=== PATIENT | male | born 1950 | race Caucasian/White ===

== ENCOUNTER → 2022-08-22 14:14 | Outpatient (CLI) | payer MEDICARE, OTHER, SELFPAY ==
--- NOTE | 2022-08-22 14:14 | CT_ITS ---
FINAL REPORT TECHNIQUE: Thin section axial images were obtained from the lung apices through the upper abdomen without contrast. This study was performed with techniques to keep radiation doses as low as reasonably achievable (ALARA). Individualized dose reduction techniques using automated exposure control or adjustment of mA and/or kV according to the patient's size were employed. CLINICAL HISTORY: Lung Nodule FINDINGS: There is no mediastinal, hilar, or axillary lymphadenopathy. There is no pleural or pericardial effusion. There is a 5 mm left upper lobe nodule on image 24. There is a 4 mm nodule along the right major fissure on image 37 that is likely an intra fissural lymph node. Limited, unenhanced evaluation of the upper abdomen is without acute abnormality. There are gallstones in the gallbladder. There may be a left renal mass incompletely imaged. There is a nonobstructing left renal stone. There is no acute osseous abnormality. IMPRESSION: 1. 5 mm or less bilateral pulmonary nodules. Recommend follow-up based on risk stratification and Fleischner criteria. 2. Possible left renal mass. Recommend either ultrasound or contrast enhanced CT. Reviewed, Interpreted and Dictated by Anisha Lucas MD Transcribed by Stormy Crocker Authenticated and [facility]
== END ==
PROVIDERS: PCP Family Medicine; Visit Provider Family Medicine
DX: R91.1 Solitary pulmonary nodule (principal)
CPT/HCPCS: 71250

== ENCOUNTER → 2022-09-07 09:43 | Outpatient (CLI) | payer MEDICARE, OTHER, SELFPAY ==
--- NOTE | 2022-09-07 09:43 | US_ITS ---
FINAL REPORT TECHNIQUE: Ultrasound images of the abdomen were obtained. CLINICAL HISTORY: ? left Renal mass COMPARISON: CT chest 08/22/2022 FINDINGS: ABDOMINAL ULTRASOUND COMPLETE: The liver is normal in size and echogenicity without focal abnormality. Gallstones are present within the gallbladder. The common duct measures 3 mm. The right kidney measures 11.2 cm in length and is normal in echogenicity without hydronephrosis. The left kidney measures 10.8 cm in length. There is a 1.3 cm mass in lower pole of the left kidney which does not appear to be a simple cyst. The spleen is unremarkable. The pancreas is partially obscured by overlying bowel gas. The visualized portions of the aorta and the IVC are normal. The vena cava is unremarkable. IMPRESSION: Gallstones in the gallbladder. 1.2 cm mass lower pole left kidney does not appear to be a simple cyst. Recommend renal mass protocol CT. Reviewed, Interpreted and Dictated by London Hogue III, MD Transcribed by Usha Ornelas Authenticated and . [facility]
== END ==
PROVIDERS: PCP Family Medicine; Visit Provider Family Medicine
DX: R10.9 Unspecified abdominal pain (principal)
CPT/HCPCS: 76700

== ENCOUNTER → 2022-09-13 11:55 | Outpatient (CLI) | payer MEDICARE, OTHER, SELFPAY ==
[2022-09-13 13:57] LABS: Blood Urea Nitrogen 24 mg/dl (9-20); Estimated Glomerular Filt Rate 66 ml/min (>60); GFR (African American) 80 ML/MIN (>60)
== END ==
PROVIDERS: PCP Family Medicine; Visit Provider Family Medicine
DX: N28.89 Other specified disorders of kidney and ureter (principal)
CPT/HCPCS: 36415; 82565; 84520

== ENCOUNTER → 2022-09-21 08:27 | Outpatient (CLI) | payer MEDICARE, OTHER, SELFPAY ==
--- NOTE | 2022-09-21 08:30 | CT_ITS ---
FINAL REPORT TECHNIQUE: Axial CT images were obtained from the lung bases to the mid abdomen before and following IV contrast administration. Images were obtained of the pelvis after IV contrast administration. Coronal and sagittal reformatted images were generated from the axial data set and provided for interpretation.This study was performed with techniques to keep radiation doses as low as reasonably achievable, (ALARA). Individualized dose reduction techniques using automated exposure control or adjustment of mA and/or kV according to the patient's size were employed. CLINICAL HISTORY: Left Renal Mass COMPARISON: 09/07/2022 abdominal ultrasound FINDINGS: LOWER CHEST: The heart is normal in size.The lung bases are clear. ABDOMEN/PELVIS: Liver, gallbladder, and bile ducts: There is diffuse fatty infiltration of the liver without focal hepatic lesion. Gallbladder is present and contains gallstones. There is no definite biliary duct dilatation. Adrenal glands: The adrenal glands are morphologically unremarkable without suspicious lesion. Kidneys, ureter and urinary bladder: No suspicious renal lesion, cystic or solid. The abnormality identified on ultrasound is not seen on this CT. There is a tiny nonobstructing left renal stone. No hydronephrosis. There is bilateral nonspecific perinephric stranding. Urinary bladder is unremarkable. Spleen: The spleen is normal size. Pancreas: The pancreas is grossly unremarkable. GI systems and mesentery: No acute abnormality. Appendix is not included on this exam. No significant mesenteric inflammation. Other: No lymphadenopathy. No ascites. Bones: No acute osseous abnormalities. IMPRESSION: No renal mass. Nonspecific bilateral perinephric stranding. Tiny nonobstructing left renal stone. Reviewed, Interpreted and Dictated by Anisha Lucas MD Transcribed by Usha Ornelas Authenticated and [facility]
== END ==
PROVIDERS: PCP Family Medicine; Visit Provider Family Medicine
DX: N28.89 Other specified disorders of kidney and ureter (principal)
CPT/HCPCS: 74170; Q9967

== ENCOUNTER → 2022-11-01 10:22 | Outpatient (CLI) | payer MEDICARE, OTHER, SELFPAY ==
[2022-11-01 15:34] LABS: Alanine Aminotransferase 22 U/L (12-78); Albumin Level 4.7 g/dl (3.5-5.0); Albumin/Globulin Ratio 1.9 (1.1-1.8); Alkaline Phosphatase 70 U/L (38-126); Anion Gap 12.5 mEq/L (5-15); Aspartate Amino Transferase 31 U/L (17-59); Bilirubin,Total 0.6 mg/dl (0.2-1.3); Calcium 9.7 mg/dl (8.4-10.2); Carbon Dioxide 26 mmol/L (22.0-30.0); Chloride 103 mmol/L (98-107); Chol/HDL Ratio 6.7 (1-3.5); Cholesterol 233 mg/dl (140-200); Globulin 2.5 g/dL (1.3-3.2); Glucose 105 mg/dl (74-100); HDL Cholesterol 35 mg/dl (40-60); Potassium 4.5 mmoL/L (3.5-5.1); Sodium 137 mmol/L (136-145); Total Protein,Serum 7.2 g/dl (6.3-8.2); Triglycerides 129 mg/dl (30-150); VLDL Cholesterol 26 mg/dL (0-40)
[2022-11-01 15:36] LABS: Basophils # 0.1 K/mm3 (0-0.2); Basophils % 1.1 % (0.1-2.0); Eosinophils # 0.2 K/mm3 (0.0-0.4); Eosinophils % 1.8 % (0.1-12.0); Hematocrit 44.1 % (42.0-52.0); Hemoglobin 13.9 g/dL (14.1-18.0); Lymphocytes # 2.6 K/mm3 (0.7-4.5); Lymphocytes % 29.7 % (10-50); Mean Corpuscular HGB Conc 31.5 g/dL (31.8-35.4); Mean Corpuscular Hemoglobin 32.8 pg (27.0-31.2); Mean Corpuscular Volume 104.1 fl (80-94); Mean Platelet Volume 9.1 fl (7.4-10.4); Monocytes # 0.7 K/mm3 (0.1-1.0); Monocytes % 7.8 % (1.7-9.3); Neutrophils # 5.2 K/mm3 (1.8-7.8); Neutrophils % 59.6 % (37.0-80.0); Platelet Count 303 K/mm3 (142-424); Red Blood Count 4.23 M/mm3 (4.60-6.20); Red Cell Distribution Width 13.1 % (11.5-17.5); White Blood Count 8.8 K/mm3 (4.8-10.8)
[2022-11-01 15:38] LABS: Blood Urea Nitrogen 23 mg/dl (9-20); Estimated Glomerular Filt Rate 66 ml/min (>60); GFR (African American) 80 ML/MIN (>60)
[2022-11-01 15:46] LABS: Direct LDL Cholesterol 145.27 mg/dL (100-129)
[2022-11-01 16:05] LABS: Prostate Specific Ag Screen 1.1 ng/ml (0.0-4.0)
== END ==
PROVIDERS: PCP Family Medicine; Visit Provider Family Medicine
DX: E11.9 Type 2 diabetes mellitus without complications (principal); Z12.5 Encounter for screening for malignant neoplasm of prostate
CPT/HCPCS: 80053; 80061; 85025; G0103

== ENCOUNTER 2024-03-04 09:17 | Outpatient (CLI) | payer MEDICARE, SELFPAY ==
[2024-03-04 20:12] LABS: Alanine Aminotransferase 35 U/L (12-78); Albumin Level 3.9 g/dl (3.5-5.0); Albumin/Globulin Ratio 1.4 (1.1-1.8); Alkaline Phosphatase 63 U/L (38-126); Anion Gap 12.5 mEq/L (5-15); Aspartate Amino Transferase 31 U/L (17-59); Bilirubin,Total 0.6 mg/dl (0.2-1.3); Blood Urea Nitrogen 27 mg/dl (9-20); Calcium 9.3 mg/dl (8.4-10.2); Carbon Dioxide 24 mmol/L (22.0-30.0); Chloride 108 mmol/L (98-107); Estimated Glomerular Filt Rate 66 ml/min (>60); GFR (African American) 80 ML/MIN (>60); Globulin 2.8 g/dL (1.3-3.2); Glucose 171 mg/dl (74-100); Potassium 4.5 mmoL/L (3.5-5.1); Sodium 140 mmol/L (136-145); Total Protein,Serum 6.7 g/dl (6.3-8.2)
[2024-03-04 21:37] LABS: Hemoglobin A1C 6.4 % (4.0-6.0)
== END 2024-03-04 23:59 | disposition home or self-care (01) ==
LOC: LAB.DROPOF 03-05 10:32
PROVIDERS: PCP Family Medicine; Visit Provider Family Medicine
DX: Z13.1 Encounter for screening for diabetes mellitus (principal); E78.00 Pure hypercholesterolemia, unspecified; Z12.5 Encounter for screening for malignant neoplasm of prostate
CPT/HCPCS: 80053; 83036; G0103